=== PATIENT | female | born 1970 | race Caucasian/White ===

== ENCOUNTER 2017-07-22 06:27 | Day surgery (SDC) | payer MEDICAID ==
[2017-07-22] MEDS ORDERED: SOD CHLORIDE 0.9% 1,000 ML IV (06:30)
[2017-07-22] MEDS ORDERED: CEFAZOLIN 2 GM/50 ML (PMX) 50 ML IVPB (06:30)
[2017-07-22] MEDS ORDERED: ROCURONIUM 50 MG INJ (07:00)
[2017-07-22 07:22] LABS: ADD MAN DIFF? NO
[2017-07-22 07:28] LABS: WHITE BLOOD COUNT 2.8 10^3/ul (4.8-10.8)
[2017-07-22 07:28] LABS: ABNORMAL IP MESSAGE 1; BASOPHILS % 0.7 % (0.0-2.0); EOSINOPHILS % 1.4 % (0.0-7.0); HEMOGLOBIN 13.1 g/dl (12.0-16.0); LYMPHOCYTES # 0.6 10^3/ul (0.8-2.9); LYMPHOCYTES % 20.8 % (15.0-51.0); MEAN CORPUSCULAR HEMOGLOBIN 33.2 pg (29.0-33.0); MEAN CORPUSCULAR HGB CONC 35.4 g/dl (32.0-37.0); MEAN CORPUSCULAR VOLUME 93.9 fl (82.0-101.0); MEAN PLATELET VOLUME 9.4 fl (7.4-10.4); MONOCYTE # 0.3 10^3/ul (0.3-0.9); MONOCYTES % 9.9 % (0.0-11.0); NEUTROPHIL # 1.9 10^3/ul (1.6-7.5); NEUTROPHILS % 66.1 % (39.0-77.0); PLATELET COUNT 166 10^3/UL (140-415); RED BLOOD COUNT 3.94 10^6/ul (4.20-5.40); RED CELL DISTRIBUTION WIDTH 11.4 % (11.5-14.5)
[2017-07-22 07:34] LABS: ALANINE AMINOTRANSFERASE 37 IU/L (13-69); ALBUMIN/GLOBULIN RATIO 1.29; ALKALINE PHOSPHATASE 92 IU/L (42-121); ANION GAP 13 (8-16); ASPARTATE AMINO TRANSFERASE 28 IU/L (15-46); BILIRUBIN,INDIRECT 0.5 mg/dl (0-1.1); BILIRUBIN,TOTAL 0.5 mg/dl (0.2-1.3); CARBON DIOXIDE 25 mmol/L (21-31); CHLORIDE 105 mmol/L (97-110); GLUCOSE 91 mg/dl (70-220); TOTAL PROTEIN 7.1 g/dl (6.1-8.1)
[2017-07-22 07:35] LABS: BLOOD UREA NITROGEN 13 mg/dl (7-20); CALCIUM 8.4 mg/dl (8.4-10.2); CREATININE 0.89 mg/dl (0.44-1.00); INR 0.94; PARTIAL THROMBOPLASTIN TIME 31.5 Sec (25.0-35.0); POTASSIUM 3.8 mmol/L (3.5-5.1); PROTIME 12.7 Sec (11.9-14.9); SODIUM 139 mmol/L (135-144)
[2017-07-22 07:43] LABS: HOLD TRANSMISSIONS 1
[2017-07-22] MEDS ORDERED: BUPIVACAINE 0.5% (SDV) 30 ML INJ (07:58)
[2017-07-22] MEDS ORDERED: PROPOFOL 20 ML (08:30)
[2017-07-22] MEDS ORDERED: MIDAZOLAM 1 MG/ML 2 ML INJ (08:30)
[2017-07-22] MEDS ORDERED: CEFAZOLIN 1 GM INJ (08:30)
[2017-07-22] MEDS ORDERED: FENTAnyl 50 MCG/ML VIAL (08:31)
[2017-07-22] MEDS: BUPIVACAINE 0.5% 30 ML VIAL INJ (08:45)
[2017-07-22] MEDS ORDERED: MEPERIDINE 25 MG INJ IV (09:00)
[2017-07-22] MEDS ORDERED: FENTAnyl 50 MCG/ML VIAL IV ×3 (09:00)
[2017-07-22] MEDS ORDERED: HYDROmorphONE (0.2 MG/ML) 10ML SYG IV ×2 (09:00)
[2017-07-22] MEDS ORDERED: EPHEDrine SULFATE 50 MG/5 ML SYG IV (09:00)
[2017-07-22] MEDS ORDERED: LABETALOL HCL 20MG INJ IV (09:00)
[2017-07-22] MEDS ORDERED: METOCLOPRAMIDE 10 MG INJ IV (09:00)
[2017-07-22] MEDS ORDERED: DIPHENHYDRAMINE 50 MG INJ IV (09:00)
[2017-07-22] MEDS ORDERED: OXYCODONE/ACETAMINOPHEN (5/325) TAB PO (09:00)
[2017-07-22] MEDS: HYDROmorphONE (0.2 MG/ML) 10ML SYG IV (09:38)
[2017-07-22] MEDS: ONDANSETRON 4 MG INJ IV (10:52)
== END 2017-07-22 11:25 | disposition home or self-care (01) ==
LOC: SDS 06:27
DX: N61.0 Mastitis without abscess (principal); R22.31 Localized swelling, mass and lump, right upper limb
CPT/HCPCS: 11403; 80053; 85025; 85610; 85730; 88307